=== PATIENT | male | born 1970 | race Caucasian/White ===

== ENCOUNTER 2017-11-29 00:54 | Emergency (ER) | payer OTHER ==
[~2017-11-29] VITALS: Ht 188 cm; Wt 90.7 kg
--- NOTE | 2017-11-29 01:15 | PHYS DOC ---
Adult General Chief Complaint Chief Complaint: CHEST PAIN HPI HPI Patient is a 47 year old male that presents to the emergency department complaining of trouble breathing and chest pressure. He states that one day ago he was out drinking and fell down a flight of stairs. He admits to hitting his head but denies any loss of consciousness. Several hours ago he was woke up due to his back pain that he acquired due to his fall. He states that taking a full breath makes the pain worse and has led to his shortness of breath. He rates his pain as 9/10 in severity. He states that moving around makes the pain worse. He also complains of feeling "really bloated" in his abdomen. Patient also complains of chest pressure that does not radiate. Review of Systems Review of Systems Constitutional: Denies fever or chills [] Eyes: Denies change in visual acuity, redness, or eye pain [] HENT: Denies nasal congestion or sore throat [] Respiratory: Denies cough. Endorses shortness of breath [] Cardiovascular: Complains of chest pressure.[] GI: Complains of feeling bloated. Denies abdominal pain, nausea, vomiting, bloody stools or diarrhea [] : Denies dysuria or hematuria [] Musculoskeletal: Complains of lower left back pain. Denies any midline tenderness [] Neurologic: Denies headache, focal weakness or sensory changes. Neurologically intact.[] Complete systems were reviewed and found to be within normal limits, except as documented in this note. Current Medications Current Medications Current Medications Medications (Trade) Dose Ordered Sig/Wanda Start Time Stop Time Status Last Admin Dose Admin Aspirin (Elina Aspirin) 325 mg 1X ONCE 11/29/17 01:30 11/29/17 01:31 DC 11/29/17 01:45 325 MG Fentanyl Citrate (Fentanyl 2ml Vial) 75 mcg 1X ONCE 11/29/17 02:00 11/29/17 02:01 DC 11/29/17 01:45 75 MCG Info (CONTRAST GIVEN -- Rx MONITORING) 1 each PRN DAILY PRN 11/29/17 02:00 12/01/17 01:59 Iohexol (Omnipaque 300 Mg/ml) 75 ml 1X ONCE 11/29/17 02:15 11/29/17 02:16 DC 11/29/17 02:01 75 ML Sodium Chloride 1,000 ml @ 1,000 mls/hr 1X ONCE 11/29/17 01:30 11/29/17 02:29 DC 11/29/17 01:47 1,000 MLS/HR Allergies Allergies Allergies Coded Allergies Type Severity Reaction Last Updated Verified No Known Drug Allergies 11/29/17 No Physical Exam Physical Exam Constitutional: Well developed, well nourished, no acute distress, non-toxic appearance. [] HENT: Normocephalic, atraumatic, bilateral external ears normal, oropharynx moist, no oral exudates, nose normal. [] Eyes: PERRL, EOMI. [] Neck: Normal range of motion, no tenderness, supple, no stridor. [] Cardiovascular:Heart rate regular rhythm, no murmur [] Lungs & Thorax: Bilateral breath sounds clear to auscultation [] Abdomen: Bowel sounds normal. Distended. No masses, no pulsatile masses. [] Skin: Warm, dry, no erythema, no rash. [] Back: Left lower tenderness. No CVA tenderness. [] Extremities: No tenderness, no cyanosis, no clubbing, ROM intact, no edema. [] Neurologic: Alert and oriented X 3, normal motor function, normal sensory function, no focal deficits noted. [] Current Patient Data Vital Signs Vital Signs Date Time Temp Pulse Resp B/P (MAP) Pulse Ox O2 Delivery O2 Flow Rate FiO2 11/29/17 03:15 82 162/79 (106) 97 Room Air 11/29/17 01:45 22 11/29/17 00:55 98.4 98.4 Lab Values Laboratory Tests Test 11/29/17 01:07 White Blood Count 11.2 x10^3/uL (4.0-11.0) H Red Blood Count 4.71 x10^6/uL (4.30-5.70) Hemoglobin 15.2 g/dL (13.0-17.5) Hematocrit 43.2 % (39.0-53.0) Mean Corpuscular Volume 92 fL (79-100) Mean Corpuscular Hemoglobin 32 pg (25-35) Mean Corpuscular Hemoglobin Concent 35 g/dL (31-37) Red Cell Distribution Width 14.3 % (11.5-14.5) Platelet Count 293 x10^3/uL (140-400) Neutrophils (%) (Auto) 62 % (31-73) Lymphocytes (%) (Auto) 26 % (24-48) Monocytes (%) (Auto) 11 % (0-9) H Eosinophils (%) (Auto) 1 % (0-3) Basophils (%) (Auto) 1 % (0-3) Neutrophils # (Auto) 6.9 x10^3uL (1.8-7.7) Lymphocytes # (Auto) 2.9 x10^3/uL (1.0-4.8) Monocytes # (Auto) 1.2 x10^3/uL (0.0-1.1) H Eosinophils # (Auto) 0.1 x10^3/uL (0.0-0.7) Basophils # (Auto) 0.1 x10^3/uL (0.0-0.2) Prothrombin Time 13.0 SEC (11.7-14.0) Prothrombin Time INR 1.0 (0.8-1.1) Sodium Level 141 mmol/L (136-145) Potassium Level 3.5 mmol/L (3.5-5.1) Chloride Level 106 mmol/L (98-107) Carbon Dioxide Level 26 mmol/L (21-32) Anion Gap 9 (6-14) Blood Urea Nitrogen 21 mg/dL (8-26) Creatinine 0.8 mg/dL (0.7-1.3) Estimated GFR (Cockcroft-Gault) 102.7 BUN/Creatinine Ratio 26 (6-20) H Glucose Level 118 mg/dL (70-99) H Calcium Level 8.8 mg/dL (8.5-10.1) Magnesium Level 2.0 mg/dL (1.8-2.4) Total Bilirubin 0.3 mg/dL (0.2-1.0) Aspartate Amino Transferase (AST) 27 U/L (15-37) Alanine Aminotransferase (ALT) 37 U/L (16-63) Alkaline Phosphatase 117 U/L (46-116) H Creatine Kinase 392 U/L (39-308) H Creatine Kinase MB (Mass) 3.9 ng/mL (0.0-3.6) H Creatine Kinase MB Relative Index 1.0 % (0-4) Troponin I Quantitative < 0.017 ng/mL (0.000-0.055) XC-Jgm-[id number]-Type Natriuretic Peptide 14 pg/mL (0-124) Total Protein 7.3 g/dL (6.4-8.2) Albumin 4.0 g/dL (3.4-5.0) Albumin/Globulin Ratio 1.2 (1.0-1.7) Lipase 129 U/L (73-393) Ethyl Alcohol Level 55 mg/dL (0-10) H Laboratory Tests 11/29/17 01:07 Laboratory Tests 11/29/17 01:07 EKG EKG NSR at 86bpm. NO ST elevation. 11/29/2017. 0100 Radiology/Procedures Radiology/Procedures PROCEDURE: CT CHEST ABD PELVIS W/CONTRAST CT chest, abdomen and pelvis with contrast 11/29/2017 Clinical indication: Left flank pain, rib pain after fall. COMPARISON: None. TECHNIQUE: Multiple CT images of the chest, abdomen and pelvis were obtained following the intravenous administration of 75 mL Omnipaque 300. *One or more of the following individualized dose reduction techniques were utilized for this examination: 1. Automated exposure control. 2. Adjustment of the mA and/or kV according to patient size. 3. Use of iterative reconstruction technique. FINDINGS: CHEST: Heart size is normal without significant pericardial effusion. Coronary artery calcifications are noted. The thoracic aorta is normal in caliber. No axillary, mediastinal or hilar lymphadenopathy. The central airways are patent. No pleural effusion, pneumothorax or focal consolidation. Nondisplaced posterior left 10th and 11th rib fracture deformities. Abdomen and pelvis: Liver, gallbladder, spleen, adrenal glands, pancreas and right kidney are unremarkable. Left inferior pole hypodensity measuring 1.8 cm series 4/image 44. Posterior superior pole left renal hypodensity measuring 0.67 m series 4/image 32. No hydronephrosis. Abdominal aorta normal in caliber. Nature portal veins patent. No retroperitoneal or mesenteric lymphadenopathy. Small and large bowel loops are normal in caliber without obstruction. Appendix is normal in appearance. No abdominal free fluid. No pneumoperitoneum. There are few scattered distal colonic diverticula without diverticulitis. Mild prostate enlargement and poorly distended unopacified urinary bladder unremarkable. No iliac or inguinal lymphadenopathy. Soft tissue density at the right internal inguinal ring. There are no destructive osseous lesions. IMPRESSION: CHEST: 1. Nondisplaced posterior left 10th and 11th rib fracture deformities. 2. No pneumothorax. Abdomen and pelvis: 1. No CT evidence of acute abdominal pelvic visceral injury or hemoperitoneum. 2. 2 left renal hypodensities which do not meet strict criteria for a cyst. Nonemergent left renal ultrasound is recommended for further evaluation. 3. Mild prostate enlargement. Correlation with PSA is recommended. 4. Soft tissue density in the internal right inguinal ring, likely sequela of prior hernia repair. Electronically signed by: Ramsey Gomez MD (11/29/2017 2:32 AM) [facility] Course & Med Decision Making Course & Med Decision Making Pertinent Labs and Imaging studies reviewed. (See chart for details) Patient is a 47-year-old male that presents to the emergency department complaining of shortness of breath after having fallen down some stairs approximately 24 hours ago. While in the ED, supportive measures provided. Labs and EKG ordered. EKG showed normal sinus rhythm. CT of head and abd pelvis was ordered and showed nondisplaced posterior left 10th and 11th rib fractures and no other acute processes. Incentive spirometry was ordered and the importance of using the device was explained to the patient. Due to the patient's alcohol use, it was explained to the patient that his alcohol use combined with narcotic medication can be very dangerous. Patient was understanding and said that he was willing to take Aleve or ibuprofen for pain and to forego any narcotic medication. Patient stable for discharge with outpatient follow-up with PCP. Discussed findings and plan with patient who acknowledges understanding and agreement. Dragon Disclaimer Dragon Disclaimer This electronic medical record was generated, in whole or in part, using a voice recognition dictation system. Departure Departure Impression: Primary Impression: Closed rib fracture Additional Impression: Alcohol abuse Disposition: 01 HOME, SELF-CARE Condition: STABLE Referrals: FELI HERNANDEZ MD (PCP) Patient Instructions: Alcohol Problems, Incentive Spirometer, Rib Fracture, [id number] Additional Instructions: Use over the counter Tylenol and/or Ibuprofen for pain. Problem Qualifiers Primary Impression: Closed rib fracture Encounter type: initial encounter Rib fracture type: multiple ribs Laterality: left Qualified Codes: S22.42XA - Multiple fractures of ribs, left side, initial encounter for closed fracture FELI PATIÑO DO Nov 29, 2017 01:15
[2017-11-29 01:16] LABS: BASO # 0.1 x10^3/uL (0.0-0.2); BASO % 1 % (0-3); EOS # 0.1 x10^3/uL (0.0-0.7); EOS % 1 % (0-3); HEMATOCRIT 43.2 % (39.0-53.0); HEMOGLOBIN 15.2 g/dL (13.0-17.5); LYMPH # 2.9 x10^3/uL (1.0-4.8); LYMPH % 26 % (24-48); MEAN CORPUSCULAR HEMOGLOBIN 32 pg (25-35); MEAN CORPUSCULAR HGB CONC 35 g/dL (31-37); MEAN CORPUSCULAR VOLUME 92 fL (79-100); MONO # 1.2 x10^3/uL (0.0-1.1); MONO % 11 % (0-9); NEUT # 6.9 x10^3uL (1.8-7.7); NEUT % 62 % (31-73); PLATELET COUNT 293 x10^3/uL (140-400); RED BLOOD COUNT 4.71 x10^6/uL (4.30-5.70); RED CELL DISTRIBUTION WIDTH 14.3 % (11.5-14.5); WHITE BLOOD COUNT 11.2 x10^3/uL (4.0-11.0)
[2017-11-29 01:26] LABS: CALCIUM 8.8 mg/dL (8.5-10.1); CREATININE 0.8 mg/dL (0.7-1.3); GFR 102.7; POTASSIUM 3.5 mmol/L (3.5-5.1)
[2017-11-29] MEDS ORDERED: IV NORMAL SALINE 1000ML BAG 1,000 ML IV ONE (01:30)
[2017-11-29] MEDS ORDERED: ASPIRIN 325 MG TABLET PO ONE (01:30)
[2017-11-29 01:32] LABS: ALBUMIN/GLOBULIN RATIO 1.2 (1.0-1.7); TOTAL BILIRUBIN 0.3 mg/dL (0.2-1.0); TOTAL PROTEIN 7.3 g/dL (6.4-8.2)
[2017-11-29] MEDS ORDERED: CONTRAST GIVEN. MC PRN (02:00)
[2017-11-29] MEDS ORDERED: fentaNYL PF VIAL 100 MCG/2 ML VIAL IV ONE (02:00)
[2017-11-29] MEDS ORDERED: IOHEXOL 300 MG/ML 100ML VIAL. IV ONE (02:15)
--- NOTE | 2017-11-29 02:35 | RAD ---
CT chest, abdomen and pelvis with contrast 11/29/2017 Clinical indication: Left flank pain, rib pain after fall. COMPARISON: None. TECHNIQUE: Multiple CT images of the chest, abdomen and pelvis were obtained following the intravenous administration of 75 mL Omnipaque 300. *One or more of the following individualized dose reduction techniques were utilized for this examination: 1. Automated exposure control. 2. Adjustment of the mA and/or kV according to patient size. 3. Use of iterative reconstruction technique. FINDINGS: CHEST: Heart size is normal without significant pericardial effusion. Coronary artery calcifications are noted. The thoracic aorta is normal in caliber. No axillary, mediastinal or hilar lymphadenopathy. The central airways are patent. No pleural effusion, pneumothorax or focal consolidation. Nondisplaced posterior left 10th and 11th rib fracture deformities. Abdomen and pelvis: Liver, gallbladder, spleen, adrenal glands, pancreas and right kidney are unremarkable. Left inferior pole hypodensity measuring 1.8 cm series 4/image 44. Posterior superior pole left renal hypodensity measuring 0.67 m series 4/image 32. No hydronephrosis. Abdominal aorta normal in caliber. Nature portal veins patent. No retroperitoneal or mesenteric lymphadenopathy. Small and large bowel loops are normal in caliber without obstruction. Appendix is normal in appearance. No abdominal free fluid. No pneumoperitoneum. There are few scattered distal colonic diverticula without diverticulitis. Mild prostate enlargement and poorly distended unopacified urinary bladder unremarkable. No iliac or inguinal lymphadenopathy. Soft tissue density at the right internal inguinal ring. There are no destructive osseous lesions. IMPRESSION: CHEST: 1. Nondisplaced posterior left 10th and 11th rib fracture deformities. 2. No pneumothorax. Abdomen and pelvis: 1. No CT evidence of acute abdominal pelvic visceral injury or hemoperitoneum. 2. 2 left renal hypodensities which do not meet strict criteria for a cyst. Nonemergent left renal ultrasound is recommended for further evaluation. 3. Mild prostate enlargement. Correlation with PSA is recommended. 4. Soft tissue density in the internal right inguinal ring, likely sequela of prior hernia repair. Electronically signed by: Ramsey Gomez MD (11/29/2017 2:32 AM) [facility]
[2017-11-29 03:15] VITALS: BP 162/79
--- NOTE | 2017-11-29 07:07 | EKG ---
[facility] [address] [place] [address] Test Date: 2017-11-29 Test Time: 00:58:47 Pat Name: YUNIOR DUNAWAY Department: Room: Gender: M [employer]: : 1970 Requested By: FELI PATIÑO Order Number: [id number] Reading MD: Georgi Russell MD Measurements Intervals [place] Rate: 85 P: -31 MT: 128 QRS: 58 QRSD: 84 T: 31 QT: 344 QTc: 414 Interpretive Statements SR Electronically Signed On 12-01-2017 10:02:13 CDT by Georgi Russell MD
== END 2017-11-29 03:41 | disposition home or self-care (01) ==
LOC: ER 00:54
DX: S22.42XA Multiple fractures of ribs, left side, initial encounter for closed fracture (principal); Y93.89 Activity, other specified; W10.8XXA Fall (on) (from) other stairs and steps, initial encounter; Y92.89 Other specified places as the place of occurrence of the external cause; Y99.8 Other external cause status
CPT/HCPCS: 36415; 71260; 74177; 80053; 82553; 83690; 83735; 83880; 84484; 85025; 85610; 93005; 96374; 99285; G0480; J3010; J7030; Q9967

== ENCOUNTER 2018-07-15 17:01 | Emergency (ER) | payer SELFPAY ==
[~2018-07-15] VITALS: Ht 188 cm; Wt 90.7 kg
[2018-07-15] MEDS ORDERED: HYDR-3164 PO (17:41)
[2018-07-15 17:43] VITALS: BP 137/75
[2018-07-15] MEDS ORDERED: MORPHINE SULFATE 4 MG/ML VIAL. IM ONE (17:45)
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
--- NOTE | 2018-07-15 17:54 | RAD ---
Indication:ER PATIENT. TRAUMA INJURY TODAY. LEFT SHOULDER PAIN ARM PULLED FROM DOG ON A LEASH. NO PRIORS TECHNIQUE: 2 views of the left shoulder COMPARISON:None FINDINGS: There is a complete mildly displaced fracture through the surgical neck of the humerus and also involving the lateral humeral head. Acromioclavicular joint is intact. Visualized left lung is clear. IMPRESSION: Fracture of the proximal humerus as described above. Electronically signed by: Gilbert Quiñones DO (07/15/2018 5:51 PM) [facility]
[2018-07-15] MEDS ORDERED: MORPHINE SULFATE 4 MG/ML VIAL. IV ONE (18:00)
== END 2018-07-15 18:03 | disposition home or self-care (01) ==
LOC: ER 17:01
DX: S42.212A Unspecified displaced fracture of surgical neck of left humerus, initial encounter for closed fracture (principal); F32.9 Major depressive disorder, single episode, unspecified; K21.9 Gastro-esophageal reflux disease without esophagitis; E78.00 Pure hypercholesterolemia, unspecified; I10 Essential (primary) hypertension; F10.20 Alcohol dependence, uncomplicated; Y90.9 Presence of alcohol in blood, level not specified; X50.9XXA Other and unspecified overexertion or strenuous movements or postures, initial encounter; Y93.89 Activity, other specified; Y92.89 Other specified places as the place of occurrence of the external cause; Y99.8 Other external cause status
CPT/HCPCS: 73030; 96374; 99283; J2270